=== PATIENT | female | born 1940 | race Caucasian/White ===

== ENCOUNTER 2018-06-14 06:38 | Day surgery (SDC) | payer MEDICARE, BC ==
[2018-06-14] VITALS (7 sets, daily range): BP systolic 178–189; BP diastolic 76–82; PULSE 64–72; TEMP 97.4–98
[~2018-06-14] VITALS: Ht 160 cm; Wt 75.7 kg
[~2018-06-14 06:38] MED LIST: ASPIRIN E.C. 8181 MG PO; BENICAR HCT 251 TAB PO; CALCIUM CARBONA1 TA7 PO; MULTIPLE VITAMI1 CAP PO; NIACIN500 M3 PO
[2018-06-14] MEDS ORDERED: ZESTRIL 10MG10 MG PO (08:25)
--- NOTE | 2018-06-14 09:45 | NUR ---
Patient taken back to radiology per cart for needle localization.
--- NOTE | 2018-06-14 09:55 | NUR ---
Initial visit; Chandrika and her thanked Paramedic Supervisor for offering comfort, encouragement and prayer prior to her surgical procedure.
--- NOTE | 2018-06-14 10:58 | NUR ---
Patient returns to room per cart from radiology and call light in reach.
--- NOTE | 2018-06-14 13:55 | NUR ---
Patient returns to room 6 per cart and is awake and alert. Chavez set dressing dry on the left axilla. IV fluids infusing RH. Temp 97.4. Denies pain or nausea. Siderails up x2 and call light in reach. Spouse in room. Given [employer]eps[employer] and water to drink. Head of cart elevated.
--- NOTE | 2018-06-14 14:10 | NUR ---
Continues to sip on water and Peps[employer]. Denies pain or nausea.
[2018-06-14] MEDS ORDERED: NORCO 325 MG-51 TAB PO (14:15)
--- NOTE | 2018-06-14 14:25 | NUR ---
Eating pudding and continues to deny pain or nausea.
--- NOTE | 2018-06-14 14:40 | NUR ---
Resting and denies pain or nausea. Talking with spouse.
--- NOTE | 2018-06-14 15:00 | NUR ---
Tolerated pudding and Pepsi. Continues to deny pain or nausea. Chavez set dressing dry on the left axilla.
--- NOTE | 2018-06-14 15:10 | NUR ---
Assisted up to the bathroom and gait is steady. Patient able to void and returns to room. Gait steady.
--- NOTE | 2018-06-14 15:25 | NUR ---
IV discontinued and given dismissal instructions. Provided script for [place] and instructed to take with food. Voiced understanding of home cares and follow up appointment date and time. Patient is dressed and ready for discharge.
--- NOTE | 2018-06-14 15:30 | NUR ---
Patient dismissed to home per private vehicle driven spouse and escorted to the front door by RN and dismissed to home with dismissal instructions in hand.
== END 2018-06-14 15:30 | disposition home or self-care (01) ==
LOC: SDCO 06:38
DX: C50.412 Malignant neoplasm of upper-outer quadrant of left female breast (principal); Z17.0 Estrogen receptor positive status [ER+]; E11.9 Type 2 diabetes mellitus without complications; I10 Essential (primary) hypertension; Z79.899 Other long term (current) drug therapy; Z79.82 Long term (current) use of aspirin; Z86.711 Personal history of pulmonary embolism; Z90.710 Acquired absence of both cervix and uterus
CPT/HCPCS: A9541; J0360; J0690; J1100; J1885; J2250; J2405; J2704; J2795; J3010; J7120